=== PATIENT | male | born 1975 | race Caucasian/White ===

== ENCOUNTER 2021-11-23 07:05 | Emergency (ER) | payer OTHER, SELFPAY ==
[2021-11-23 07:22] VITALS: BP 160/95; PULSE 70; RESP 16; TEMP 37.2; O2SAT 94
--- NOTE | 2021-11-23 07:46 | DI.RAD.S_ITS ---
PROCEDURE: XR FINGER LT MIN 2V INDICATIONS: 15 pound metal landed on thumb. laceration TECHNIQUE: AP hand, 2 views of the 1st finger(s) acquired. COMPARISON: None. FINDINGS: Bones: Questionable nondisplaced longitudinally oriented fracture along the volar aspect of the 1st distal phalanx seen on a single view only. No displaced fractures. No dislocation. Soft tissues: No suspicious soft tissue calcifications. No radiodense foreign body in the 1st digit. There is a possible metallic foreign body within or along the 2nd proximal phalanx. IMPRESSION: 1. Questionable nondisplaced fracture of the 1st distal phalanx seen on the lateral view only. Dictated by: Harriet Scott M.D. on 11/23/2021 at 8:22 Approved by: Harriet Scott M.D. on 11/23/2021 at 8:25
[2021-11-23] MEDS: TET,DIPH,PERTUSS(ACELL),VAC/PF 0.5 ML SYRINGE IM (07:48)
[2021-11-23] MEDS: LIDOCAINE 1% (PF) 5 ML INJ (08:41)
--- NOTE | 2021-11-23 09:28 | ED_ITS ---
HPI - Wound/Laceration General Chief Complaint: Wound/Laceration Stated Complaint: Lac to left thumb Time Seen by Provider: 11/23/21 07:38 Source: patient Mode of arrival: Family Vehicle History of Present Illness HPI narrative: The patient is a boilermaker welder. He presents with a left thumb injury that occurred at work this morning. He was moving a metal object, he slipped. His left thumb was caught between the edge of a metal object and a table top. He sustained a laceration to the radial side of the left thumb. Active bleeding has ceased. He has no numbness to the thumb. The nail bed is intact. His last tetanus unknown. He is right-hand dominant. There were no other injuries. He denies recent illness. He has no numbness or tingling in the injured thumb. He complains of no pain. Related Data Previous Rx's Medication Instructions Recorded cephalexin 500 mg capsule 500 mg PO Q8H 7 Days #21 cap 11/23/21 Allergies Allergy/AdvReac Type Severity Reaction Status Date / Time No Known Drug Allergies Allergy Verified 11/23/21 07:27 Review of Systems Review of Systems ROS Unobtainable: All systems reviewed & are unremarkable except as noted in HPI and below Patient History Medical History (Updated 11/23/21 @ 09:38 by Heron Pham MD) No chronic diseases present Surgical History (Updated 11/23/21 @ 09:30 by Heron Pham MD) No significant past surgical history Social History Smoking Status: Never smoker Smoking Status: Never smoker alcohol intake frequency: holidays/special occasions only Substance Use Type: does not use Exam Initial Vital Signs Initial Vital Signs: Vital Signs Temperature 99.0 F 11/23/21 07:22 Pulse Rate 70 11/23/21 07:22 Respiratory Rate 16 11/23/21 07:22 Blood Pressure 160/95 H 11/23/21 07:22 Pulse Oximetry 94 11/23/21 07:22 Const General: cooperative, healthy appearing and comfortable [facility] Head: normocephalic and atraumatic Skin General: no rashes or lesions noted and other (Other than the thumb laceration) Neuro Other: Left thumb motor and sensory exam is normal. Two point discrimination is intact. Extrem Other: Left thumb 3 cm laceration. The laceration is transverse to the volar thumb, extending to the radial edge of the proximal nail bed and tracking along the nail bed. The flap is raised, there is no bony exposure. There is no contamination. The nailbed is intact. Psych Appearance: grossly normal Procedures Laceration Repair Laceration 1: Site: hand (thumb) Side (If applicable): left Size (cm): 3 Description: flap Depth: simple, single layer Local Anesthetic: lidocaine 1% Amount of anesthesia used (mL): 2 Pre-repair: wound explored, irrigated extensively and deep structures intact Skin layer closed with: nylon Size (cm): 5-0 Number of sutures: 3 Technique: simple, interrupted Course Course Course Narrative: The patient was given a tetanus booster. Keflex 500 mg was administered. After sutures were placed, his wound was cleansed and bandages were applied by his nurse. He tolerated the procedure well. X-ray suggested a possible distal phalanx fracture. There is no bony exposure with the exam. He was started on Keflex as a precaution. Orders Ordered: Discontinued Medications Cephalexin HCl (Cephalexin 250 Mg Capsule) 500 mg PO NOW ONE Stop: 11/23/21 09:36 Last Admin: 11/23/21 09:50 Dose: 500 mg Documented by: KBROTEM Diphtheria/Tetanus/Acell Pertussis (Tet,Diph,Pertuss(Acell),Vac/Pf 0.5 Ml Syringe) 0.5 ml IM .ONCE ONE Stop: 11/23/21 07:30 Last Admin: 11/23/21 07:48 Dose: 0.5 ml Documented by: NI Lidocaine HCl (Lidocaine 1% (Pf) 5 Ml) 5 ml INJ NOW ONE Stop: 11/23/21 08:34 Last Admin: 11/23/21 08:41 Dose: 5 ml Documented by: NI Vital Signs Vital signs: Vital Signs - 8 hr 11/23/21 07:22 Temperature 99.0 F Pulse Rate 70 Respiratory Rate 16 Blood Pressure 160/95 H Pulse Oximetry 94 MDM - Wound/Laceration Imaging Data Left thumb x-ray:: Radiologist's Impression: Question nondisplaced fracture of the 1st distal phalanx of the left hand. Discharge Plan Departure Patient Disposition: Home Clinical Impression: Laceration of left thumb Instructions: DI for Laceration Repair Activity Restrictions/Additional Instructions: Keep the bandage in place for 2 days. Once the bandages is off, clean the hand normally. Cover the injured finger when active or work. Keflex 3 times daily for 1 week. Follow up with a local clinic or here for suture removal in 10 days. Prescriptions: New cephalexin 500 mg capsule 500 mg PO Q8H 7 Days Qty: 21 0RF
[2021-11-23] MEDS: cephALEXin 250 MG CAPSULE 500 MG PO (09:50)
[2021-11-23 10:05] VITALS: BP 144/106; PULSE 68; O2SAT 96
--- NOTE | 2021-11-23 10:05 | PC.NURSE ---
tube gauze applied.
== END 2021-11-23 10:06 | disposition home or self-care (01) ==
PROVIDERS: Emergency Provider Emergency Medicine
DX: S61.012A Laceration without foreign body of left thumb without damage to nail, initial encounter (principal); Z23 Encounter for immunization; W26.8XXA Contact with other sharp object(s), not elsewhere classified, initial encounter; Y93.89 Activity, other specified; Y99.0 Civilian activity done for income or pay
CPT/HCPCS: 12002; 73140; 90471; 99283; 99284; 90715